=== PATIENT | male | born 1980 | race African-American/Black ===

== ENCOUNTER 2023-10-31 02:10 | Emergency (ER) | payer MEDICAID, OTHER ==
[~2023-10-31] VITALS: Ht 172.7 cm; Wt 73.0 kg
[2023-10-31 02:19] VITALS: TEMP 98.7; O2SAT 100
[2023-10-31 04:26] VITALS: BP 125/73; PULSE 59; RESP 16
[2023-10-31] MEDS: ONDANSETRON HCL 4MG/2ML INJ IV STA (04:26)
[2023-10-31] MEDS: MORPHINE SULFATE 4 MG/ML INJ (FOR IV/IM USE) IV STA (04:26)
[2023-10-31 04:28] LABS: CHLORIDE 106 mEq/L (98-107); POTASSIUM 3.6 mEq/L (3.5-5.1); SODIUM 138 mEq/L (136-145)
[2023-10-31 04:29] LABS: CALCIUM 9.8 mg/dL (8.7-10.4); CARBON DIOXIDE 23 mEq/L (21-32)
[2023-10-31 04:34] LABS: GLUCOSE 109 mg/dL (70-105); UREA NITROGEN BLOOD 14 mg/dL (9-23)
[2023-10-31 05:21] LABS: BASOPHILS % 0.4 % (0.0-2.0); EOSINOPHILS % 0.8 % (0.0-5.0); HEMATOCRIT. 46.7 % (42.0-52.0); HEMOGLOBIN. 15.4 g/dL (14.0-18.0); LYMPHOCYTES % 12.5 % (20.0-50.0); MEAN CORPUSCULAR HEMOGLOBIN 31.4 pg (28.0-32.0); MEAN CORPUSCULAR HGB CONC 32.9 g/dL (31.0-37.0); MEAN CORPUSCULAR VOLUME 95.3 fL (80.0-94.0); MEAN PLATELET VOLUME 8.7 fl (7.4-10.4); MONOCYTES % 7.5 % (2.0-8.0); NEUTROPHILS % 78.8 % (40.0-76.0); PLATELET 271 x1000/uL (130-400); RED CELL DISTRIBUTION WIDTH 14.1 % (11.6-14.6); WHITE BLOOD COUNT 12.5 x1000/uL (4.5-11.0)
[2023-10-31] MEDS ORDERED: IBUP-2029 MT (05:26)
== END 2023-10-31 05:52 | disposition home or self-care (01) ==
LOC: ER 02:23
DX: S00.83XA Contusion of other part of head, initial encounter (principal); S63.91XA Sprain of unspecified part of right wrist and hand, initial encounter; Y04.0XXA Assault by unarmed brawl or fight, initial encounter; Y93.89 Activity, other specified; Y92.89 Other specified places as the place of occurrence of the external cause; Y99.8 Other external cause status
CPT/HCPCS: 80048; 85025; 36415; 71045; 73130; 70450; 70486; 72125; 96374; 96375; 99285; J2405; J2270; Z7610